=== PATIENT | male | born 1960 | race Caucasian/White ===

== ENCOUNTER 2021-05-11 07:16 | Outpatient (CLI) | payer OTHER, SELFPAY ==
--- NOTE | 2021-05-11 11:45 | DI.NM_ITS ---
APPROVED REPORT Exam: Exercise Treadmill Patient Location: Out-Patient Room/Bed: Stress Nurse: Charmaine Baptiste RN Ordering Provider:BLANK ALTMAN MD Contact Number: [phone] BMI: 28.58 Baseline Rhythm: Sinus Bradycardia Comment: minimal ST elevation in inferior leads Indications: CHEST PAIN Medical History Medical History: HLD, ASCVD, STEMI, Hx Tobacco use, Low back pain, Atrial fibrillation, Unstable manolo na Cardiac Medications: Eliquis, Atorvastatin, Clopidogrel, Famotidine, Nitro SL, Metoprolol succinate Allergies: PNCs Cardiac Risk Factors: FHX of CAD, Hyperlipidemia, Smoking (former) Previous Cardiac Procedures: PCI w/ stents (last Apr 2020) Pretest Chest Pain Characteristics: No chest pain Exercise History: Sedentary Physical Disabilities: None Lung Sounds: Clear to auscultation Heart Sounds: Irregular, Bradycardia Stress Test Details Test: Exercise stress testing was performed using a Camron protocol. Nuclear Acquisition: Rest Tc-99m/Stress Tc-99m 1 day Rest Isotope: Tc-99m Sestamibi. Dose: 11.5 Date: 05/11/2021 Injection Time: 1140 Stress Isotope: Tc-99m Sestamibi. Dose: 37.0 Date: 05/11/2021 Injection Time: 1350 HR Resting HR Supine: 47 bpm Max Heart Rate (APMHR): 161.139978 bpm Resting HR Standin bpm Target HR (85% APMHR): 136.156745 bpm Max HR Achieved: 146 bpm % of APMHR: 90.68 Recovery HR: 67 bpm HR response to stress: Normal HR response to stress Comment: patient last took metoprolol succinate this morning at 0200 BP Resting BP Supine: 144/82 mmHg Resting BP Standin/80 mmHg Max BP: 182/84 mmHg Recovery BP: 152/74 mmHg BP response to stress: Normal blood pressure response to stress. ECG Resting ECG: Sinus Bradycardia Ectopy: None Comment: minimal ST elevation noted in inferior leads Stress ECG: Sinus Arrhythmia ST Change: No significant ST segment changes noted Arrhythmia: PACs, occasional PVC Comment: T wave inversions developed in V3 that quickly recovered with rest Recovery ECG: Sinus Arrhythmia Recovery ST Change: No significant ST segment changes noted Recovery Arrhythmia: occasional PVC, PACs with noncompensatory pauses Clinical Reason for Termination: Dyspnea (patient jumped off treadmill, test terminated at that time) Stress Symptoms: Dyspnea Exercise duration: 10 min05 sec Highest Stage Reached: Stage 4: 4.2 mph at 16% grade. Exercise capacity: 12.25 METs Moeller Treadmill Score: 10 Rate Pressure Product: 18702 Stress ECG Conclusion 1. The patient exercised for 10 minutes (12 METS). The patient's heart rate and blood pressure augme nted appropriately. 2. There were no ECG changes consistent with ischemia. Moeller Treadmill Score is 10 which is Low risk. Stress Test Summary STAGE Time (mins) Speed (mph) Grade (%) HR BP SYMPTOMS METS Supine 47 144/82 Standing 53 138/80 SpO2 99% 1 3 1.7 10 76 140/80 4.6 2 6 2.5 12 88 140/84 7 3 9 3.4 14 120 150/90 SpO2 97% 10.2 1 min recovery 98 160/93 SpO2 97%, c/o mod SOB 3 min recovery 77 182/84 symptoms resolved 6 min recovery 67 152/74 MPI Conclusion Ejection fraction was 51 percent with stress. There were no wall motion abnormalities. Abnormal anterior perfusion defect seen only with attenuation correction thus is likely artifact. This represents a normal SPECT stress test. Radiologist Interpretation Radiologist agrees with Bass Viol Repairer's Interpretation. Left lower rib fracture seen on CT images. Lungs clear Radiologist Interpretation by: Eleanor Rausch MD Interpretation Date/Time: 05/11/2021 15:32:40
== END 2021-05-11 07:36 ==
PROVIDERS: Visit Provider Internal Medicine Interventional Cardiology
DX: R07.9 Chest pain, unspecified (principal); Z82.49 Family history of ischemic heart disease and other diseases of the circulatory system; I49.3 Ventricular premature depolarization; I49.1 Atrial premature depolarization; E78.5 Hyperlipidemia, unspecified; Z87.891 Personal history of nicotine dependence
CPT/HCPCS: 78452; 93017

== ENCOUNTER 2022-09-26 19:52 | Emergency (ER) | payer MEDICAID, SELFPAY ==
[2022-09-26] VITALS (30 sets, daily range): BP systolic 123–155; BP diastolic 69–90; PULSE 48–81; RESP 18; O2SAT 94–99
--- NOTE | 2022-09-26 19:45 | RT.EKG_ITS ---
APPROVED REPORT Exam: Resting ECG Reason for Exam: chest pain Patient Location: E HR:80 bpm ECG Measurements Heart Rate 80 AXIS OR 156 P 78 QRSd 104 QRS 83 QT 380 T 8 QTc 439 Conclusion Sinus rhythm...normal P axis, V-rate 60- 99
--- NOTE | 2022-09-26 20:00 | DI.CT_ITS ---
Exam(s) CT CHEST PE CTA EXAM: CT CHEST PE CTA CLINICAL HISTORY: chest pain. TECHNIQUE: Imaging Protocol: CT angiography of the chest was performed using pulmonary embolus melinda col. Multi planar reconstructions were performed. CONTRAST MATERIAL: Intravenous: Omnipaque 350 Contrast volume: 100 cc COMPARISON: CT,NM,TMT NM MPI REST STRESS GRP from 05/11/2021 FINDINGS: CHEST: PULMONARY ARTERIES: There are no intraluminal filling defects to suggest acute pulmonary emboli. LUNGS: There are no infiltrates nor evidence of pulmonary infarction.. There are no pleural effusions . No significant nodules. No pneumothorax. MEDIASTINUM: There is no hilar nor mediastinal adenopathy. Visualized thyroid unremarkable. CARDIAC: Heart size is upper normal. There is no pericardial effusion.Caliber of the thoracic aorta is within normal limits. There is no significant shift of the interventricular septum. PARTIALLY VISUALIZED UPPERMOST ABDOMEN: No obvious findings OSSEOUS: Healed right-sided rib fractures. No acute fractures. No significant osseous lesions.. IMPRESSION: 1. No evidence of acute pulmonary emboli. No evidence of pulmonary infarction.No pleural effusions. 2. There are multiple healed right-sided rib fractures. No acute fractures evident. First read by [facility] RADIATION DOSE DELIVERED: 438.72mGy.cm Total DLP DATA REPOSITORY: All CT scans at this facility are submitted to the National Radiology Data Registry (NRDR) Dose Index Registry (DIR) with the [employer] ([employer]). RADIATION OPTIMIZATION: All CT scans at this facility use at least one of these dose optimization te chniques: automated exposure control; mA and/or kV adjustment per patient size (includes targeted exa ms where dose is matched to clinical indication); or iterative reconstruction.
--- NOTE | 2022-09-26 20:02 | ED.GENADUL_ITS ---
Discharge Plan Disposition Patient Disposition: Home Condition: Stable Discharge Details Clinical Impression: Chest pain Primary Care Provider: Unknown,Unknown ED Provider: Porfiiro Flores Home Meds and New Rx's Prescriptions: Continued oxycodone-acetaminophen [Percocet] 5-325 mg tablet 1 tab PO BID PRN Eliquis 5 mg tablet 5 mg PO BID amlodipine 2.5 mg Tablet 2.5 mg PO DAILY metoprolol succinate 25 mg Tablet Extended Release 24 Hr 25 mg PO DAILY PRN (Reason: Atrial Fibrillation) Discharge Instructions Instructions: Chest Pain (ED) Additional Instructions: Your blood work and cat scan did not show concerning findings today it is still important to follow up with your primary care provider or pediatric registered nurse as soon as possible if you feel more ill, have severe worsening pain or difficulty breathing return to the emergency department Medical Decision Making 62 yo male who states he has a history of CAD s/p 3 stents approximately 3 years ago, former smoker, who comes in with cc of chest pain throughout the day he describes as a pressure in the chest. It is nonradiating, no dyspnea, no diaphoresis, no n/v. He arrives stable speaking clearly in no distress with clear lungs, no jvd, no murmurs, no leg swelling, soft nontender abdomen. Given his history will proceed with troponin, cbc, cmp, and cta of the chest to evaluate for pe, he has no tearing back pain and normal peripheral pulses so doubt dissection labs unremarkable, negative troponin, negative cta. He feels better and requesting d/c. I offered observation admission but pt declined this and has decision making capacity, understands reasoning for observation including tele monitoring and possible expedited stress testing and still doesn't want to stay. He is willing to stay for a delta troponin delta troponin negative, he is asymptomatic and stable vitals, still declines observation admission, has f/u tomorrow with his provider per patient, return precautions given Differential Diagnosis Differential Diagnosis: angina, nstemi, pe, chest wall pain Imaging Data Radiologic Study: Attestation: I personally reviewed and interpreted this imaging study as follows: Imaging: CT Scan Radiologist's impression: PROCEDURE INFORMATION: Exam: CTA Chest With Contrast Exam date and time: 09/26/2022 20:29 Age: 62 years old Clinical indication: Chest wall pain; Prior surgery; Surgery date: 6+ months; Surgery type: PT states h/o 3 cardiac stents; Additional info: Chest pain TECHNIQUE: Imaging protocol: Computed tomographic angiography of the chest with contrast. Exam focused on the arteries. 3D rendering (Not supervised by radiologist): MIP and/or 3D reconstructed images were created by the technologist. Radiation optimization: All CT scans at this facility use at least one of these dose optimization techniques: automated exposure control; mA and/or kV adjustment per patient size (includes targeted exams where dose is matched to clinical indication); or iterative reconstruction. Contrast material: OMNI 350; Contrast volume: 100 ml; Contrast route: INTRAVENOUS (IV); COMPARISON: No relevant prior studies available. FINDINGS: Pulmonary arteries: No pulmonary emboli. Aorta: No aortic aneurysm. No aortic dissection. Lungs: No airspace consolidation. Pleural spaces: No pneumothorax. No pleural effusion. Heart: Cardiac size is upper limits of normal. Lymph nodes: No enlarged lymph nodes. Gallbladder and bile ducts: Cholecystectomy. Bones/joints: Chronic bony changes with no acute fracture. Soft tissues: No suspicious lesions. IMPRESSION: No pulmonary emboli are seen. ECG Data Attestation: I personally reviewed and interpreted this ECG (s) as follows: Prior ECG tracings: not available for review Interpretation: sinus, rate of 80, pr 156, no stemi HPI General Mode of arrival: ambulatory . Date/Time Provider Initiated Documentation: 09/26/22 19:53 . Limitations to Documentation: no limitations . Information obtained by: patient . History of Present Illness 62 year old M presents to the emergency department with the chief complaint of chest pain, described as moderate, Patient started experiencing this day(s) (1) and it has been constant. No relieving factors improve symptom(s), No exacerbating factors reported . Patient notes no other symptoms.. Patient did receive the following treatments prior to arrival, none Related Data Home Medications Medication Instructions Recorded Confirmed apixaban 5 mg tablet (Eliquis) 5 mg PO BID 08/13/22 09/26/22 oxycodone-acetaminophen 5 mg-325 1 tab PO BID PRN 08/13/22 09/26/22 mg tablet (Percocet) amlodipine 2.5 mg tablet 2.5 mg PO DAILY 09/26/22 09/26/22 metoprolol succinate 25 mg 25 mg PO DAILY PRN Atrial 09/26/22 09/26/22 tablet,extended release 24 hr Fibrillation Allergies Allergy/AdvReac Type Severity Reaction Status Date / Time fentanyl AdvReac Verified 09/26/22 20:07 Review of Systems All systems reviewed & are unremarkable except as noted in HPI and below Constitutional Constitutional: Denies chills, Denies fever(s) and Denies weakness Respiratory Respiratory: Denies cough Gastrointestinal Gastrointestinal: Denies abdominal pain, Denies nausea and Denies vomiting Musculoskeletal Musculoskeletal: Denies joint swelling Neurologic Neurologic: Denies weakness PFSH All Active Problems (Updated 09/26/22 @ 21:58 by Porfirio Flores MD) Chest pain (Acute) Osteoarthritis of left knee (Acute) DEPO MEDROL: 08/13/2022 Social History Smoking/Tobacco Use Status: Never Smoking risk assessment performed?: Yes Alcohol Intake: current Alcohol Intake frequency: a few times a week Alcohol type: beer Drug use: Never Substance use type: does not use Exam Const General: no acute distress Orientation: alert HENMT Head: normal to inspection Ears: external ears normal General nose exam: external nose normal Mouth: moist mucous membranes Eyes General: appearance normal, both eyes and all related structures Neck Neck: normal visual inspection Resp Effort & Inspection: normal respiratory effort and able to speak in complete sentences Auscultation: clear to auscultation bilaterally Cardio Jugular venous pressure: no JVD Rate: regular rate Heart Sounds: no murmurs GI Palpation: soft and nontender Skin General skin exam: no rashes or lesions noted Neuro General: patient alert and patient oriented x3 Extrem General: normal to inspection Psych Mental Status: mental status grossly normal
[2022-09-26 20:15] LABS: Abs Immature Grans 0.02 10^3/uL (0.0-0.06); Absolute Basophil Count 0.03 10^3/uL (0.0-0.2); Absolute Lymphocyte Count 1.86 10^3/uL (1.2-3.4); Absolute Monocyte Count 0.51 10^3/uL (0.1-0.8); Absolute Neutrophil Count 3.15 10^3/uL (1.2-6.7); Basophils % 0.5; Eosinophils % 1.8; HCT 43.8 % (40.0-50.0); HGB 15.5 g/dL (13.5-17.5); Immature Grans % 0.4; Lymphocytes % 32.8; MCH 31.3 pg (27.0-33.0); MCHC 35.4 % (32.0-36.0); MCV 88 fL (80-95); MPV 9.2 fL (8.0-11.0); Neutrophils % 55.5; Platelet Count 231 10^3/uL (130-400); RBC 4.96 10^6/uL (4.36-5.78); WBC 5.67 10^3/uL (4.4-10.8)
[2022-09-26 20:29] LABS: Prothrombin Time 10.1 sec (9.3-11.0)
[2022-09-26] MEDS: Normal Saline - Diluent 50 ML VIAL IJ (20:30)
[2022-09-26] MEDS: Omnipaque 350 MG/ML 100 ML BTL IJ (20:30)
[2022-09-26 20:33] LABS: ALT 49 U/L (16-63); AST 32 U/L (15-37); Albumin 3.9 g/dL (3.4-5.0); Alkaline Phosphatase 74 U/L (46-116); Anion Gap 9.2 mmol/L (3-11); BUN 15 mg/dL (7-18); Bilirubin, Total 0.5 mg/dL (0.2-1.0); CO2 26.8 mmol/L (21.0-32.0); Calcium 8.5 mg/dL (8.5-10.1); Chloride 106 mmol/L (98-107); Estimated GFR 85.63 (mL/min/1.73m2); Glucose 146 mg/dL (74-106); Lipase 26 U/L (16-77); Magnesium 1.9 mg/dL (1.8-2.4); Potassium 3.5 mmol/L (3.5-5.1); Sodium 142 mmol/L (136-145); Total Protein 7.3 g/dL (6.4-8.2); Troponin I < 50 ng/L (<or=60)
--- NOTE | 2022-09-26 20:49 | DI.VRAD_ITS ---
PROCEDURE INFORMATION: Exam: CTA Chest With Contrast Exam date and time: 09/26/2022 20:29 Age: 62 years old Clinical indication: Chest wall pain; Prior surgery; Surgery date: 6+ months; Surgery type: PT states h/o 3 cardiac stents; Additional info: Chest pain TECHNIQUE: Imaging protocol: Computed tomographic angiography of the chest with contrast. Exam focused on the arteries. 3D rendering (Not supervised by radiologist): MIP and/or 3D reconstructed images were created by the technologist. Radiation optimization: All CT scans at this facility use at least one of these dose optimization techniques: automated exposure control; mA and/or kV adjustment per patient size (includes targeted exams where dose is matched to clinical indication); or iterative reconstruction. Contrast material: OMNI 350; Contrast volume: 100 ml; Contrast route: INTRAVENOUS (IV); COMPARISON: No relevant prior studies available. FINDINGS: Pulmonary arteries: No pulmonary emboli. Aorta: No aortic aneurysm. No aortic dissection. Lungs: No airspace consolidation. Pleural spaces: No pneumothorax. No pleural effusion. Heart: Cardiac size is upper limits of normal. Lymph nodes: No enlarged lymph nodes. Gallbladder and bile ducts: Cholecystectomy. Bones/joints: Chronic bony changes with no acute fracture. Soft tissues: No suspicious lesions. IMPRESSION: No pulmonary emboli are seen. Dictated and Authenticated by: Agata Anaya MD. Ordering:MATY Monroy MD
--- NOTE | 2022-09-26 21:00 | NUR.NOTE ---
Nursing Note: Pt understands next steps of care. Two doses of NTG given with desired effect. Pt comfortable now and declines further doses. MD aware.
[2022-09-26 22:07] LABS: Troponin I < 50 ng/L (<or=60)
--- NOTE | 2022-09-28 13:43 | NUR.NOTE ---
Nursing Note: Accessed chart to determine orders for EKG and to determine whether or not one needs to be cancelled. Order cancelled.
== END 2022-09-26 22:42 | disposition home or self-care (01) ==
PROVIDERS: Emergency Provider Emergency Medicine
DX: R07.9 Chest pain, unspecified (principal); I25.10 Atherosclerotic heart disease of native coronary artery without angina pectoris
CPT/HCPCS: 71275; 80053; 83690; 93005; 99285; 83735; 84484; 85025; 85610; 85730; 93010; 99284; J3490

== ENCOUNTER 2024-09-16 05:59 | Day surgery (SDC) | payer BC, SELFPAY ==
--- NOTE | 2024-09-15 18:41 | W.PM.DSUDISC ---
Date of service: 09/16/24 Discharge Plan Disposition Patient Disposition: Home Condition: Good Discharge Details Reason For Visit: Right inguinal hernia repair Attending Provider: Martín Bower Primary Care Provider: Zeferino Shine Home Meds and New Rx's Prescriptions: New oxycodone-acetaminophen [Endocet] 5-325 mg tablet 1 tab PO Q8H PRNQty: 9 0RF Rx Instructions: Take 1 tablet by mouth up to every 8 hours if needed for more severe pain. Continued tamsulosin 0.4 mg capsule 0.4 mg PO DAILY Qty: 90 3RF oxycodone-acetaminophen [Percocet] 5-325 mg tablet 1 tab PO BID PRN Patient Comments: 0.5 pill taken magnesium 250 mg tablet 250 mg PO DAILY vitamin B complex Tablet 1 tab PO DAILY allopurinol 300 mg tablet 300 mg PO DAILY aspirin [Adult Low Dose Aspirin] 81 mg tablet,delayed release (DR/EC) 81 mg PO DAILY nitroglycerin 0.4 mg tablet, sublingual 0.4 mg sublingual Q5M PRN Patient Comments: pt. states years Rx Instructions: do not exceed 3 doses per episode amlodipine 2.5 mg Tablet 2.5 mg PO DAILY Patient Comments: per pt. states he doesnt take it everyday, just PRN Held Eliquis 5 mg tablet 5 mg PO BID Hold Instructions: Resume on 09/17/24. Discharge Instructions Instructions: Groin Hernia Repair, Open Surgery Additional Instructions: Shaji, it was very nice seeing you today, and I hope you make a quick and uneventful recovery. Everything went very smoothly. As we talked about beforehand, we were able to reduce the hernia back into its normal position, and patch the hole through which the hernia passed the floor of the inguinal canal was also quite weak, and I suspect that may be contributing to some of the symptoms that you were feeling. The repair should help deal with all of that. This did require a fair amount of dissection around your spermatic cord, so expect to have some swelling that may even extend down into your scrotum and your testicle in the days to come. Bruising that involves the area is also extremely common and nothing to worry about. I would like you to hold your Eliquis until tomorrow, then resume in the evening as you normally take it. I did add a prescription for a few more Percocet for you to use over the next few days. I recommend alternating Tylenol and ibuprofen as well. Ice packs are also quite helpful over the incisions in the groin to help reduce swelling and deal with postoperative pain. If you need anything, or have any questions at all, please do not hesitate to ask. Otherwise, we look forward to seeing you on the at your postoperative visit. 1. Resume all of your regular medications. 2. Use ice packs over the incisions for pain. 3. Alternate over the counter tylenol and ibuprofen every 6 hours for the first 2 days, then use as needed. Use the prescription for [] if needed for more severe pain. 4. Leave bandage in place for 24 hours, then remove. 5. Shower with warm soapy water. Pat dry. Use a bandaid if needed to protect your clothing. 6. No soaking or tub baths until I see you in the office. 7. No heavy lifting until I see you in the office. 8.Call the office (or go directly to the emergency room after hours) if you notice any of the following: Develop chills (warm to touch), or if you have a thermometer and your temperature is above 101 Difficulty breathing or difficultly swallowing Persistent vomiting Any bleeding ? exceeding one tablespoon 6. Call your physician if the site where your intravenous was started becomes red, swollen, painful, and warm to touch. Stand Alone Forms: Anesthesia Discharge Inst., Anes.Nerve Block Instructions, Royer Thomas ([facility]) Referrals: Martín Bower MD [ [facility] STAFF PHYSICIAN] - 09/24/24 8:45 am Activity:: no heavy lifting Remove Dressings/Wound Care:: 24 hours Shower/Bathe:: 24 hours Diet:: As Tolerated Discharge Orders Discharge Orders: Discharge Order (Routine); Ordered 09/15/24 Ordered By: Martín Bower DS: Diagnosis Discharge Diagnosis (1) Right inguinal hernia: Status: Acute Asessment and Plan: Outpatient postoperative follow-up
--- NOTE | 2024-09-15 18:45 | W.PM.OP ---
Operative Note Operative Note PRE-OP DIAGNOSIS: Right inguinal hernia PROCEDURE: open right inguinal hernia repair with mesh SURGEON: Martín Bower PROPERTY CLAIMS ADJUSTER: Jen Perea ANESTHESIA TYPE: Local By Surgeon, General LMA/ETT and Other (Tap block) Refer to Anesthesia Record ESTIMATED BLOOD LOSS: 20 PATHOLOGY: none sent COMPLICATIONS: None Patient was transported to: PACU Patient's condition: stable Implants: Bard PerFix light large plug and patch Indications: Shaji is a 64-year-old male with a symptomatic right inguinal hernia Findings: Indirect right inguinal hernia, with laxity of the inguinal floor Procedure Description: I met with Shaji in the preoperative area, and we reviewed the interval history. He had the chance to ask any other questions. He confirmed the right side was the correct side, and this was marked. We then moved back to the operating room, and he was assisted onto the OR table. General anesthesia was initiated, and the anesthesia team performed a right-sided ultrasound-guided inguinal tap block. The surgical site was then prepped and draped in the usual fashion. I began by making an oblique incision over the right inguinal region. I dissected down through the skin to the deep fascia. Next, I incised the fascia along the length of the inguinal canal to the external ring. I then carefully identified the ilioinguinal nerve and sharply divided. Once this was complete, I bluntly dissected the shelving edge of the inguinal ligament down towards the pubic tubercle. Here, I encircled all cord structures with a Bernadette drain. Next, I began dissecting the specific cord structures. Great care was taken to spare the vas deferens and the blood supply to the testicle. Next, I isolated the hernia sac from the other inguinal structures. I reduced it back to its normal anatomic position. This was an indirect inguinal hernia. Although the floor of the inguinal canal was quite lax, and I suspect there may be a direct component here as well. I then used a large PerFix light mesh plug to obliterate the defect at the internal ring. I fixed in place with interrupted Prolene stitches. Next, I buttressed the posterior floor of the inguinal canal with a large mesh patch. I started by fixing it to the pubic tubercle. Next, I used Prolene sutures to affix it to the shelving edge of the inguinal ligament and the conjoined tendon. Laterally I tacked it to the internal oblique and reconstructed an internal ring without any strain on the cord structures. Once this was complete, I irrigated the surgical field. It appeared hemostatic. I then closed the anterior portion of the fascia to reconstruct the front wall of the inguinal canal. I did this with interrupted Vicryl stitches. Once again, I irrigated the surgical field and inspected for hemostasis. Finally, I approximated the superficial fascia and the deep layers of the skin with absorbable suture. Skin was closed with running subcuticular stitches. Bandages were applied, the patient was awakened and transferred to the recovery unit. Date of Procedure: 09/16/24
[2024-09-16] VITALS (11 sets, daily range): BP systolic 101–132; BP diastolic 55–78; PULSE 41–53; RESP 13–18; TEMP 36.2–36.5; O2SAT 95–99; BMI 29.0
[2024-09-16] MEDS: Acetaminophen 500 MG TAB 1000 MG PO (06:38)
[2024-09-16] MEDS: Celecoxib 200 MG CAP PO (06:40)
[2024-09-16] MEDS: Gabapentin 300 MG CAP 600 MG PO (06:40)
[2024-09-16] MEDS: Lactated Ringers 1,000 ML 80 ML IV (06:55)
--- NOTE | 2024-09-16 07:03 | ANES.PREOP_ITS ---
General Info Date of Service Date Performed: 09/16/24 Height: 5 ft 8 in Weight: 86.8 kg Body Mass Index (BMI): 29.0 Surgical Procedure: Operation Date: 09/16/24 07:40 Proposed Procedure Side Surgeon p Herniorrhaphy Inguinal Repair w/Mesh Right Martín Bower MD Actual Procedure Side Surgeon p Herniorrhaphy Inguinal Repair w/Mesh Right Martín Bower MD Pre-Op Diagnosis Post-Op Diagnosis Right inguinal hernia Meds Allergies and Home Medications Allergies Allergy/AdvReac Type Severity Reaction Status Date / Time fentanyl AdvReac Intermediate Dizziness/L Verified 09/16/24 06:29 [place]head Home Medication ?Medication ?Instructions ?Recorded apixaban 5 mg tablet (Eliquis) 5 mg PO BID 08/13/22 oxycodone-acetaminophen 5 mg-325 1 tab PO BID PRN 08/13/22 mg tablet (Percocet) amlodipine 2.5 mg tablet 2.5 mg PO DAILY 09/26/22 allopurinol 300 mg tablet 300 mg PO DAILY 05/27/23 aspirin 81 mg tablet,delayed 81 mg PO DAILY 05/27/23 release (Adult Low Dose Aspirin) nitroglycerin 0.4 mg sublingual 0.4 mg sublingual Q5M PRN 05/27/23 tablet tamsulosin 0.4 mg capsule 0.4 mg PO DAILY #90 caps 10/14/23 magnesium 250 mg tablet 250 mg PO DAILY 07/07/24 vitamin B complex 1 tab PO DAILY 07/07/24 Current Visit Medications: Current Medications Generic Name Dose Route Start Last Admin Trade Name Freq PRN Reason Stop Dose Admin Acetaminophen 1,000 mg 09/16/24 06:00 09/16/24 06:38 Acetaminophen 500 Mg Tab PO 09/16/24 23:59 1,000 mg PREOP ALISON Administration Celecoxib 200 mg 09/16/24 06:00 09/16/24 06:40 Celecoxib 200 Mg Cap PO 09/16/24 23:59 200 mg PREOP ALISON Administration Gabapentin 600 mg 09/16/24 06:00 09/16/24 06:40 Gabapentin 300 Mg Cap PO 09/16/24 23:59 600 mg PREOP ALISON Administration Hydromorphone HCl 0.2 mg 09/15/24 18:46 Hydromorphone 2 Mg/Ml Syr IVP 10/15/24 18:45 Q1H PRN PRN Ringer's Solution 1,000 mls @ 80 mls/hr 09/16/24 06:00 IV 09/16/24 23:59 INFUSION ALISON Cefazolin Sodium/Dextrose 2 gm in 50 mls @ 100 mls/hr 09/16/24 06:00 Ancef Duplex IVPB 09/16/24 23:59 PREOP ALISON IV Miscellaneous Supplies 1 each 09/16/24 06:00 Iv Access IV 09/16/24 23:59 DIRECTED ALISON Sodium Chloride 0 ml 09/16/24 06:00 Normal Saline Flush 10 Ml Syr IV 09/16/24 23:59 PRN PRN Sodium Chloride 0 ml 09/16/24 06:00 Normal Saline 10 Ml Vial IJ 09/16/24 23:59 DIRECTED PRN Sterile Water 0 ml 09/16/24 06:00 Water,Injection,Sterile 10 Ml Vial IJ 09/16/24 23:59 DIRECTED PRN PFSH Active Problems Active Problems: Problem Status Onset Code Family history of prostate cancer in father Acute Z80.42 Umbilical hernia Acute K42.9 Right inguinal hernia Acute K40.90 Inguinal hernia, left Acute K40.90 Tobacco user Acute Z72.0 Stented coronary artery Acute Z95.5 Snoring Acute R06.83 Rosacea Acute L71.9 Primary gout Acute M10.00 Preinfarction syndrome Acute I20.0 Polyp of colon Acute K63.5 Paroxysmal atrial fibrillation Acute I48.0 Pain, joint, shoulder, left Acute M25.512 Pain in left knee Acute M25.562 Myocardial infarction Chronic I21.9 Mild intermittent asthma Acute J45.20 Microscopic hematuria Acute R31.29 Malaise and fatigue Acute R53.81, R53.83 BPH w urinary obs/LUTS Acute N40.1, N13.8 Long-term use of high-risk medication Acute Z79.899 Lipomatosis Acute E88.2 Lesion of ulnar nerve Acute G56.20 Impaired glucose tolerance Acute R73.02 Hypertensive disorder Chronic I10 Hyperplasia of prostate Acute N40.0 Hyperlipidemia Acute E78.5 Herpes zoster Acute B02.9 Gout Chronic M10.9 GERD without esophagitis Acute K21.9 Dyskinesia of gallbladder Acute K82.8 Attention disturbance Acute R41.840 Degeneration of lumbar intervertebral disc Acute M51.36 Closed wedge fracture of lumbar vertebra Acute S32.000A Chronic pain Chronic G89.29 Chronic fatigue syndrome Acute G93.32 Chronic bronchitis Acute J42 Cervical lymphadenopathy Acute R59.0 BPH (benign prostatic hyperplasia) Chronic N40.0 Benign neoplasm of rectum Acute D12.8 Benign neoplasm of colon Acute D12.6 Atherosclerosis of coronary artery without angina pectoris Acute I25.10 Arteriosclerotic vascular disease Acute I70.90 Angina pectoris Chronic I20.9 Acute non-ST segment elevation myocardial infarction Acute I21.4 Osteoarthritis of left knee Acute M17.12 Surgical History Surgical History Hx of colonoscopy Hx of cardiac catheterization Hx of cholecystectomy Tobacco Smoking/Tobacco Use Status: Former Tobacco Use Passive smoking exposure: No Alcohol Alcohol Intake: current Alcohol intake frequency: a few times a week Alcohol type: beer Substance Use Substance use: Never Substance use type: does not use Details: alcohol: t-2, 3 beers Vital Signs and Lab Results Vital Signs Most Recent Vital Signs in EMR: Most Recent Vital Signs Temp Pulse Resp BP Pulse Ox 36.5 C 52 L 16 132/78 97 09/16/24 06:26 09/16/24 06:26 09/16/24 06:26 09/16/24 06:26 09/16/24 06:26 Lab Results Blood Type / Crossmatch: No Data to Display Complete Blood Count: No Data to Display Complete Metabolic Panel: No Data to Display Liver Function Panel: No Data to Display Coagulation Panel: No Data to Display Cardiac Panel: No Data to Display Arterial Blood Gas: No Data to Display Venous Blood Gas: No Data to Display Pancreas Panel: No Data to Display Thyroid Panel: No Data to Display Infectious Disease: No Data to Display Blood Cultures: No Data to Display Toxicology Panel: No Data to Display Imaging and Studies Imaging and Studies Study information below may be from another EMR and interpreted by another provider. Please see original notes in EMR for more complete details. EKG Summary: EKG PATIENT NAME: Shaji Morales UNIT #: [id number] ORDERING PROVIDER: Omar Jones M.D. PRIMARY CARE PROVIDER: UNKNOWN,UNKNOWN DATE/TIME OF SERVICE: 09/26/221999 : 1960 PERFORMING LOCATION: ER APPROVED REPORT Exam: Resting ECG Reason for Exam: chest pain Patient Location: E HR:80 bpm ECG Measurements Heart Rate 80 AXIS TN 156 P 78 QRSd 104 QRS 83 QT 380 T8 QTc 439 Conclusion Sinus rhythm...normal P axis, V-rate 60- 99 ----- <Electronically signed by PORFIRIO JONES MD in [place]> E-Sign Date: 09/26/22 E-Sign Time: 2005 ADDENDUM APPROVED REPORT Exam: Resting ECG Reason for Exam: chest pain Patient Location: E HR:80 bpm ECG Measurements Heart Rate 80 AXIS TN 156 P 78 QRSd 104 QRS 83 QT 380 T8 QTc 439 Conclusion Sinus rhythm...normal P axis, V-rate 60- 99 I have reviewed and I agree with the emergency room physician's ECG interpretation. Electronically signed by: <Electronically signed by Grzegorz Anne M.D. in [place]> 09/27/22 0824 Cosigned by: Stress Test Summary: Patient Name: Shaji Morales Unit #: [id number] Loc: DI Ordering Provider: Porfirio Ramos M.D. Status: [facility] Primary Care Provider: None,None Date of Exam: 05/11/21 Sex: M Admission Date: 05/11/21 : 1960 Age: 60 APPROVED REPORT Exam: Exercise Treadmill Patient Location: Out-Patient Room/Bed: Stress Nurse: Charmaine Baptiste RN Ordering Provider:PORFIRIO RAMOS MD Contact Number: [phone] BMI: 28.58 Baseline Rhythm: Sinus Bradycardia Comment: minimal ST elevation in inferior leads Indications: CHEST PAIN Medical History Medical History: HLD, ASCVD, STEMI, Hx Tobacco use, Low back pain, Atrial fibrillation, Unstable angina Cardiac Medications: Eliquis, Atorvastatin, Clopidogrel, Famotidine, Nitro SL, Metoprolol succinate Allergies: PNCs Cardiac Risk Factors: FHX of CAD, Hyperlipidemia, Smoking (former) Previous Cardiac Procedures: PCI w/ stents (last Apr 2020) Pretest Chest Pain Characteristics: No chest pain Exercise History: Sedentary Physical Disabilities: None Lung Sounds: Clear to auscultation Heart Sounds: Irregular, Bradycardia Stress Test Details Test: Exercise stress testing was performed using a Camron protocol. Nuclear Acquisition: Rest Tc-99m/Stress Tc-99m 1 day Rest Isotope: Tc-99m Sestamibi. Dose: 11.5 Date: 05/11/2021 Injection Time: 1140 Stress Isotope: Tc-99m Sestamibi. Dose: 37.0 Date: 05/11/2021 Injection Time: 1350 HR Resting HR Supine: 47 bpmMax Heart Rate (APMHR): 161.253964 bpm Resting HR Standin bpmTarget HR (85% APMHR): 136.625072 bpm Max HR Achieved: 146 bpm % of APMHR: 90.68 Recovery HR: 67 bpm HR response to stress: Normal HR response to stress Comment: patient last took metoprolol succinate this morning at 0200 BP Resting BP Supine: 144/82 mmHg Resting BP Standin/80 mmHg Max BP: 182/84 mmHg Recovery BP: 152/74 mmHg BP response to stress: Normal blood pressure response to stress. ECG Resting ECG: Sinus Bradycardia Ectopy: None Comment: minimal ST elevation noted in inferior leads Stress ECG: Sinus Arrhythmia ST Change: No significant ST segment changes noted Arrhythmia: PACs, occasional PVC Comment: T wave inversions developed in V3 that quickly recovered with rest Recovery ECG: Sinus Arrhythmia Recovery ST Change: No significant ST segment changes noted Recovery Arrhythmia: occasional PVC, PACs with noncompensatory pauses Clinical Reason for Termination: Dyspnea (patient jumped off treadmill, test terminated at that time) Stress Symptoms: Dyspnea Exercise duration: 10 min05 sec Highest Stage Reached: Stage 4: 4.2 mph at 16% grade. Exercise capacity: 12.25 METs Moeller Treadmill Score: 10 Rate Pressure Product: 70029 Stress ECG Conclusion 1. The patient exercised for 10 minutes (12 METS). The patient's heart rate and blood pressure augmented appropriately. 2. There were no ECG changes consistent with ischemia. Moeller Treadmill Score is 10 which is Low risk. Stress Test Summary STAGETime (mins)Speed (mph)Grade (%)[id number] [id number]/82 [id number]/80SpO2 99% 131.91142108/804.6 262.07108770/847 393.331992720/90SpO2 97%10.2 1 min [id number]/93SpO2 97%, c/o mod SOB 3 min [id number]/84symptoms resolved 6 min [id number]/74 MPI Conclusion Ejection fraction was 51 percent with stress. There were no wall motion abnormalities. Abnormal anterior perfusion defect seen only with attenuation correction thus is likely artifact. This represents a normal SPECT stress test. Radiologist Interpretation Radiologist agrees with Respiratory Therapy Assistant's Interpretation. Left lower rib fracture seen on CT images. Lungs clear Radiologist Interpretation by: Eleanor Rausch MD Interpretation Date/Time: 05/11/2021 15:32:40 Ordered By: Porfirio Ramos M.D. CC: LAN PASCUAL,GRZEGORZ ARCHER Dictated By: Grzegorz Anne M.D. 05/11/21 1414 <Electronically signed by Grzegorz Anne M.D. in [place]> 05/12/21 0815 Transcribed By: Grzegorz Anne MD This is privileged, confidential information intended only for the provider named. Any use or distribution by any person other than this provider is strictly prohibited. If you receive this report in error, please notify us immediately at [phone] and return the original report to us at the address above. Thank-you. Anesthesia Assessment and Plan Anesthesia History Personal History: No History of Anesthesia Complications Family History: No Family History of Anesthesia Complications Exercise Tolerance Exercise Tolerance: Metabolic Equivalents>4 Pertinent Negatives Pertinent Negatives: No Symptoms of GERD, No Major Cardiovascular Symptoms or Complaints, No Major Pulmonary Symptoms or Complaints and No History of CVA/TIA Cardiac & Pulmonary Exam Cardiac Exam: Normal S1/S2 Heart Sounds Pulmonary Exam: Clear Bilateral Breath Sounds Implantable Cardiac Device Does patient have a Pacemaker or an ICD?: No Airway Exam Known Difficult Airway: No Mallampati Class: 2 Mouth Opening: Normal (> 3cm) Thyromental Distance: Greater than 3 cm Neck Range of Motion: Full ROM Neck Circumference: Normal Teeth Condition: Generalized Poor Dentition and Removable Dentures/Plates Upper ASA Classification ASA Score: ASA 3 Emergency Case?: No NPO Status NPO Status: NPO Clears >2 hours, Solids >8 hours Anesthesia Plan Resuscitation Status: Full Code Anesthesia Technique: General Anesthesia Airway Planned: Endotracheal Tube Pain Management: Surgeon and patient request nerve block Monitors Used: Standard Monitors
--- NOTE | 2024-09-16 07:28 | HPE_ITS ---
Assessment and Plan Assessment and plan (1) Right inguinal hernia: Status: Acute Assessment and plan: We reviewed the plan for an open right inguinal hernia repair with permanent mesh today. Shaji had the chance to ask any new questions that he had. At this point, I think you are safe to proceed with inguinal hernia repair as planned. History of Present Illness History of Present Illness Chief Complaint: Right-sided groin pain Narrative: Shaji is 64 years old. He actually has bilateral inguinal hernias, but com plains of symptoms on the right side. We have met multiple times in the office to discuss operative repair, unfortunately, majority of those operations have been postponed. Our last encounter was in June. Since then, symptoms have been fairly stable. He does continue to have pain, that is most noticeable with vigorous activity such as his [employer] job. Otherwise, there have been no major interval changes with regards to the history. PFSH All Active Problems Family history of prostate cancer in father (Acute) Umbilical hernia (Acute) Right inguinal hernia (Acute) Inguinal hernia, left (Acute) Tobacco user (Acute) Stented coronary artery (Acute) Snoring (Acute) Rosacea (Acute) Primary gout (Acute) Preinfarction syndrome (Acute) Polyp of colon (Acute) Paroxysmal atrial fibrillation (Acute) Pain, joint, shoulder, left (Acute) Pain in left knee (Acute) Myocardial infarction (Chronic) Mild intermittent asthma (Acute) Microscopic hematuria (Acute) Malaise and fatigue (Acute) BPH w urinary obs/LUTS (Acute) Long-term use of high-risk medication (Acute) Lipomatosis (Acute) Lesion of ulnar nerve (Acute) Impaired glucose tolerance (Acute) Hypertensive disorder (Chronic) Hyperplasia of prostate (Acute) Hyperlipidemia (Acute) Herpes zoster (Acute) Gout (Chronic) GERD without esophagitis (Acute) Dyskinesia of gallbladder (Acute) Attention disturbance (Acute) Degeneration of lumbar intervertebral disc (Acute) Closed wedge fracture of lumbar vertebra (Acute) Chronic pain (Chronic) Chronic fatigue syndrome (Acute) Chronic bronchitis (Acute) Cervical lymphadenopathy (Acute) BPH (benign prostatic hyperplasia) (Chronic) Benign neoplasm of rectum (Acute) Benign neoplasm of colon (Acute) Atherosclerosis of coronary artery without angina pectoris (Acute) Arteriosclerotic vascular disease (Acute) Angina pectoris (Chronic) Acute non-ST segment elevation myocardial infarction (Acute) Osteoarthritis of left knee (Acute) DEPO MEDROL: 05/13/23; 08/13/2022 Surgical History Hx of colonoscopy Hx of cardiac catheterization Hx of cholecystectomy Social History Smoking/Tobacco Use Status: Former Tobacco Use Smoking risk assessment performed?: Yes Alcohol Intake: current Alcohol Intake frequency: a few times a week Alcohol type: beer Drug use: Never Substance use type: does not use Details: alcohol: t-2, 3 beers Housing: house Current gender identity: male Do you feel safe at home: Yes Do you feel safe in your relationship?: Yes Meds Allergies and Home Medications Allergies Allergy/AdvReac Type Severity Reaction Status Date / Time fentanyl AdvReac Intermediate Dizziness/L Verified 09/16/24 06:29 [place] Home Medications ?Medication ?Instructions ?Recorded ?Confirmed ?Type apixaban 5 mg tablet (Eliquis) 5 mg PO BID 08/13/22 09/16/24 History oxycodone-acetaminophen 5 mg-325 1 tab PO BID PRN 08/13/22 09/16/24 History mg tablet (Percocet) amlodipine 2.5 mg tablet 2.5 mg PO DAILY 09/26/22 09/16/24 History allopurinol 300 mg tablet 300 mg PO DAILY 05/27/23 09/16/24 History aspirin 81 mg tablet,delayed 81 mg PO DAILY 05/27/23 09/16/24 History release (Adult Low Dose Aspirin) nitroglycerin 0.4 mg sublingual 0.4 mg sublingual Q5M PRN 05/27/23 09/16/24 History tablet tamsulosin 0.4 mg capsule 0.4 mg PO DAILY #90 caps 10/14/23 09/16/24 Rx magnesium 250 mg tablet 250 mg PO DAILY 07/07/24 09/16/24 History vitamin B complex 1 tab PO DAILY 07/07/24 09/16/24 History Exam Const General: cooperative, healthy appearing and not in acute distress Neck Neck: normal visual inspection, no lymphadenopathy and supple Thyroid: thyroid normal Resp Effort & Inspection: normal respiratory effort Auscultation: clear to auscultation bilaterally Cardio Jugular venous pressure: no JVD Rate: regular rate Rhythm: regular rhythm Heart Sounds: S1 normal and S2 normal GI Inspection: normal to inspection Palpation: soft, no guarding, hernia (Right inguinal) and nontender Percussion: normal to percussion Auscultation: normal bowel sounds Neuro General: patient alert, patient awake and patient oriented x3 Psych Appearance: grossly normal Results Last Vital Signs Temp 97.7 F 09/16/24 06:26 Pulse 52 L 09/16/24 06:26 Resp 16 09/16/24 06:26 BP 132/78 09/16/24 06:26 Pulse Ox 97 09/16/24 06:26
[2024-09-16] MEDS: ceFAZolin 2 GM/50 ML BAG IVPB (07:47)
--- NOTE | 2024-09-16 08:00 | W.ANESNERVE ---
Nerve Block Single Injection Procedure Date and Time Date Performed: 09/16/24 Procedure Start: 07:47 Location Where Procedure Performed Procedure Location: Operating Room Procedure Stop: 07:56 Reason Performed: Postoperative Analgesia Requesting Provider: Martín Bower Timeout Performed Timeout Performed: Yes Monitoring Used ECG, Blood Pressure, SpO2 and ETCO2 Sterility Sterility: Hand Hygiene, Surgical Cap, Surgical Mask and Chlorhexidine Sedation Given During Procedure Sedation Given (Indicate Dose Given): No Sedation given Patient Mental Status Patient Mental Status: Performed under general anesthesia Nerve Block 1st Nerve Block: Laterality: Right Block Type: TAP Unilateral Ultrasound Image Saved?: Yes Needle / Catheter Used: 100mm SonoPlex II Local Anesthetic Bolus (Indicate Dose Given): Bupivacaine 0.25% Dose:: 20 ml and Exparel Dose:: 10 ml Additives (Indicate Dose Given): Normal Saline Ultrasound: Sterile probe cover and gel used Nerve Stimulator: Not Used Paresthesia: None Procedure Tolerated: No Complications and Patient tolerated well Procedure Outcome: Successful Performed By: Ahmet Serra
[2024-09-16] MEDS: Bupivacaine 0.5% Pres-Free W/EPI 30 ML VIAL (08:44)
[2024-09-16] MEDS: HYDROmorphone 2 MG/ML SYR IVP ×3 (09:22→09:45)
[2024-09-16] MEDS: Normal Saline 10 ML VIAL IJ (09:29)
[2024-09-16] MEDS: fentaNYL 100 MCG/2 ML VIAL IVP (09:52)
--- NOTE | 2024-09-16 10:19 | W.ANESPOSTOP ---
Postoperative Evaluation Date, Time and Location Date Performed: 09/16/24 Time Performed: 10:19 Patient Location: Day Surgery Unit Vital Signs Most Recent Imported Vital Signs: Most Recent Vital Signs Temp Pulse Resp BP Pulse Ox 36.3 C L 42 L 13 123/72 97 09/16/24 10:00 09/16/24 10:00 09/16/24 10:00 09/16/24 10:00 09/16/24 10:00 Pain Score Most Recent Pain Score: Most Recent Pain Score Pain Level 7 09/16/24 10:00 Assessment Mental Status: Awake (Alert & Oriented to Patient Baseline) Airway and Respiratory Function: Patent airway with normal (patient baseline) respiratory exam Cardiovascular Function: Hemodynamically Stable Hydration Status: Adequately Hydrated Nausea & Vomiting: No Nausea or Vomiting Pain: Pain is Moderate or Severe Postoperative Pain Management: Pain being addressed with medication (Patient resting comfortable in bed at this time. VSS and appropriate. ) Peripheral Nerve Block: Regional nerve block not resolved at time of post operative discharge
[2024-09-16] MEDS: oxyCODONE 5 mg/Acetaminophen 325 mg TAB 1 TAB PO (10:32)
== END 2024-09-16 11:23 | disposition home or self-care (01) ==
LOC: SUR 06:00
PROVIDERS: PCP Neuromusculoskeletal Medicine & OMM; Visit Provider Surgery
PROC: (CPT 49505; principal; 2024-09-16 07:30)
DX: K40.90 Unilateral inguinal hernia, without obstruction or gangrene, not specified as recurrent (principal)
CPT/HCPCS: 49505; 64486; C1781; J0665; J0666; J0690; J1100; J1171; J2003; J2250; J2405; J2704; J3010; J3475

== ENCOUNTER 2024-10-05 02:21 | Outpatient (CLI) | payer BC, SELFPAY ==
[2024-10-05 18:38] LABS: PSA, Screening 0.9 ng/mL (<=4.5)
== END 2024-10-05 02:22 | disposition home or self-care (01) ==
LOC: LBO 02:21
PROVIDERS: PCP Neuromusculoskeletal Medicine & OMM; Visit Provider Nurse Practitioner Gerontology
DX: R39.9 Unspecified symptoms and signs involving the genitourinary system (principal); N40.1 Benign prostatic hyperplasia with lower urinary tract symptoms; N13.8 Other obstructive and reflux uropathy; Z80.42 Family history of malignant neoplasm of prostate
CPT/HCPCS: 36415; 84153